=== PATIENT | female | born 1935 | race Caucasian/White ===

== ENCOUNTER 2017-05-28 20:46 | Inpatient (IN) | payer MEDICARE, OTHER ==
[~2017-05-28 20:46] MED LIST: KETAMINE HCL* 50 MG/ML 10 ML VIAL ONE; Succinylcholine* 20 MG/ML 10 ML VIAL ONE
[2017-05-28] MEDS ORDERED: Propofol* 100 ML ONE (20:58)
[2017-05-28] MEDS ORDERED: Levofloxacin 750 MG IVPREMIX(* 750 MG/150 ML BAG IVPB ONE (21:04)
[2017-05-28] MEDS ORDERED: NS 0.9% 1000 ML* 1,000 ML IV ONE (21:04)
[2017-05-28] MEDS ORDERED: Succinylcholine* 20 MG/ML 10 ML VIAL IV ONE (21:08)
[2017-05-28] MEDS ORDERED: Albuterol/Ipratropium NEB.SOL* Albuterol 2.5 MG/Ipratropium 0.5 MG 3 ML INH ONE (21:08)
[2017-05-28] MEDS ORDERED: KETAMINE HCL* 50 MG/ML 10 ML VIAL IV ONE (21:08)
[2017-05-28] MEDS ORDERED: Rocuronium* 10 MG/ML VIAL IV ONE (21:48)
[2017-05-28] MEDS ORDERED: EPINEPHrine,Rac 2.25% NEB.SOL* 0.5 ML INH ONE (21:51)
[2017-05-28] MEDS ORDERED: Propofol* 500 MG/50 ML BTL IV SCH (22:00)
[2017-05-28 22:04] LABS: ABS Basophils 0.2 10^3/ul (0-0.2); ABS Eosinophils 0.8 10^3/ul (0-0.6); ABS Lymphocytes 3.3 10^3/ul (1.0-4.8); ABS Monocytes 0.5 10^3/ul (0-0.8); ABS Neutrophils 11.6 10^3/ul (1.5-7.7); ABS Nucleated RBC 0 10^3/ul; Eosinophil % 4.7 % (0-6); Hematocrit 41 % (35-47); Hemoglobin 13.4 g/dl (12.0-16.0); Mean Corpuscular HGB Conc 33 g/dl (31-36); Mean Corpuscular Hemoglobin 30 pg (27-31); Mean Corpuscular Volume 90 fL (80-97); Mean Platelet Volume 8.4 um3 (7.4-10.4); Nucleated Red Blood Cells % 0; Platelet Count 325 10^3/ul (150-450); Red Blood Count 4.53 10^6/ul (4.0-5.4); Red Cell Distribution Width 16 % (10.5-15); White Blood Count 16.3 10^3/ul (3.5-10.8)
[2017-05-28 22:08] LABS: EGFR Non-African American 53.3 (>60)
--- NOTE | 2017-05-28 22:10 | RAD ---
Indication: Respiratory failure.. Single frontal view of the chest performed at 2110 hours was reviewed. Comparison is made with previous exam dated May 24, 2017. No mediastinal shift is noted. There is cardiomegaly noted. Interstitial edema consistent with vascular congestion is noted. ET tube is at the level of the aortic arch. IMPRESSION: CARDIOMEGALY WITH INTERSTITIAL EDEMA CONSISTENT WITH CHF. ET TUBE AND NASOGASTRIC TUBE APPEARS TO BE IN PLACE.
[2017-05-28 22:14] LABS: INR 0.89 (0.77-1.02)
[2017-05-28 23:11] LABS: Urine Appearance Cloudy; Urine Blood 1+ (Negative); Urine Color Amber; Urine Ketones Trace (Negative); Urine Protein 2+(100 mg/dL) (Negative); Urine Specific Gravity 1.017 (1.010-1.030); Urine Urobilinogen Negative (Negative)
--- NOTE | 2017-05-28 23:20 | HP ---
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 He relates she has had a cough & congestion since February similar to another family member. Ashwin was reportedly talking on the phone and became more acutely SOB prompting the call for EMS. There was no complaint of chest pain, LE swelling/ pain, F/C, sweats, or N/V/D. Her son states that his sister is en route from [place] and may have more information on her treatment wishes. 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 Cholecalciferol [Vitamin D-3] 1,000 unit PO BID 02/08/12 Cinnamon 500 mg PO QAM 02/08/12 Albuterol Sulfate [Proventil Hfa] 2 puff INH BID PRN 09/25/13 Acetaminophen TAB* [Tylenol TAB*] 650 mg PO Q4H PRN 05/19/14 Acetaminophen/Diphenhydramine [Acetaminophen/Diphenhydra 25-500 mg] 2 tab PO BEDTIME 05/19/14 Carboxymethylcellulose Sodium [Refresh Tears] 0.5 % PO BID 05/19/14 Cyanocobalamin TAB* [Vitamin B12 TAB*] 500 mcg PO EVERY OTHER DAY 05/19/14 Artificial Tear Ointment [Refresh P.m] 1 oin BOTH EYES BEDTIME 12/03/14 Enalapril TAB* [Vasotec TAB*] 20 mg PO BID 12/03/14 Felodipine (NF) [Plendil (NF)] 5 mg PO QAM 12/03/14 Garlic 1 cap PO DAILY 12/03/14 Hydrochlorothiazide TAB* [Hydrodiuril TAB*] 25 mg PO QAM 12/03/14 Lysine HCl [l-Lysine] 500 mg PO DAILY 12/03/14 Pravastatin (NF) [Pravachol (NF)] 20 mg PO DAILY 12/03/14 [place]-3 Fatty Acids/Fish Oil [Fish Oil 1200 mg] 1 cap PO DAILY 11/20/15 Allergies aspirin Allergy (Verified 05/28/17 21:27) See Comment ITCHY AND RASH Perfume [Fragrance] Allergy (Verified 11/27/15 08:19) DIFF. BREATHING/COUGH PSurgHx as above and otherwise positive for: B tubal ligation hiatal hernia repair appendectomy SocHx: quit smoking >30years ago, no alcohol or recreational drugs; lives with son; full code status FamHx: reviewed & non-contributory ROS: as above, otherwise reviewed and all were negative vitals: Vital Signs Temp 36.7 C 05/29/17 05:01 Pulse 92 05/29/17 05:01 Resp 15 05/29/17 05:08 BP 104/69 05/29/17 05:00 Pulse Ox 100 05/29/17 05:01 Intake & Output 05/28/17 05/28/17 05/29/17 11:59 23:59 11:59 Intake Total 999 1852 Output Total 650 Balance 999 1202 Weight 85 kg 85.6 kg Intake: IV Fluids 999 1778 NS (0.9%) 1778 Medicated IV 74 CC - Propofol/Diprivan 74 Output: NG Tube Drainage Amount 100 [place] 550 Constitutional: NAD, normally developed, obese white female HEENM: atraumatic; sclera/conjunctiva: anicteric/clear; hearing: clinically intact; oropharynx: clear, mucosa moist Neck: soft tissue: non-tender; thyroid: normal Pulmonary: intubated, diffuse crackles B, fair aeration, no accessory muscle use CV: RR/RR, normal S1S2, no carotid bruit, no jugular venous distention, 2+ B DP/ PT, trace BLE edema Abdominal: soft, non-distended, non-tender, no rebound/guarding/rigidity, normoactive bowel sounds, no hepatosplenomegaly or masses, no costovertebral angle tenderness Musculoskeletal: general: grossly intact; gait: currently non-ambulatory Integumental: normal appearance and texture of exposed skin Psychiatric orientation: intubated & sedated affect: sedated mood: acquiescent eye contact: absent content: absent responses: withdraws purposefully to pain insight: unable to assess Testing: Lab Results 05/28/17 05/28/17 05/28/17 Range/Units 21:25 21:40 21:40 WBC 16.3 H (3.5-10.8) 10^3/ul RBC 4.53 (4.0-5.4) 10^6/ul Hgb 13.4 (12.0-16.0) g/dl Hct 41 (35-47) % MCV 90 (80-97) fL MCH 30 (27-31) pg MCHC 33 (31-36) g/dl RDW 16 H (10.5-15) % Plt Count 325 (150-450) 10^3/ul MPV 8.4 (7.4-10.4) um3 Neut % (Auto) 71.1 (38-83) % Lymph % (Auto) 20.0 L (25-47) % [place] % (Auto) 3.2 (0-7) % Eos % (Auto) 4.7 (0-6) % Baso % (Auto) 1.0 (0-2) % Absolute Neuts (auto) 11.6 H (1.5-7.7) 10^3/ul Absolute Lymphs (auto) 3.3 (1.0-4.8) 10^3/ul Absolute Monos (auto) 0.5 (0-0.8) 10^3/ul Absolute Eos (auto) 0.8 H (0-0.6) 10^3/ul Absolute Basos (auto) 0.2 (0-0.2) 10^3/ul Absolute Nucleated RBC 0 10^3/ul Nucleated RBC % 0 INR (Anticoag Therapy) (0.77-1.02) APTT (26.0-36.3) seconds D-Dimer, Quantitative (Less Than 230) ng/mL Patient Temperature Not Reportable ABG pH 7.15 L* (7.35-7.45) ABG pH (Temp Correct) Not Reportable ABG pCO2 75 H* (35-45) mmHg ABG pCO2 (Temp Corrct Not Reportable ABG pO2 208 H (80-100) mmHg ABG pO2 (Temp Correct Not Reportable ABG HCO3 21.4 (19-31) mmol/L ABG O2 Saturation 98.7 H (95-98) % ABG Base Excess -4.5 L (-2.0-2.0) Respiration Rate Not Reportable O2 Delivery Device vent Ventilator Type Not Reportable Vent Mode Not Reportable FiO2 Not Reportable Inspiratory Time Not Reportable PEEP 10 Pressure Support Not Reportable Pressure Control Not Reportable EPAP Not Reportable IPAP Not Reportable BiPAP Not Reportable Sodium 123 L (139-145) mmol/L Potassium 3.8 (3.5-5.0) mmol/L Chloride 91 L (101-111) mmol/L Carbon Dioxide 22 (22-32) mmol/L Anion Gap 10 (2-11) mmol/L BUN 18 (6-24) mg/dL Creatinine 1.00 H (0.51-0.95) mg/dL Est GFR ( Amer) 68.6 (>60) Est GFR (Non-Af Amer) 53.3 (>60) BUN/Creatinine Ratio 18.0 (8-20) Glucose 332 H (70-100) mg/dL Lactic Acid (0.5-2.0) mmol/L Calcium 9.1 (8.6-10.3) mg/dL Total Bilirubin 0.30 (0.2-1.0) mg/dL AST 52 H (13-39) U/L ALT 53 H (7-52) U/L Alkaline Phosphatase 94 (34-104) U/L Troponin I 0.07 H* (<0.04) ng/mL C-Reactive Protein 6.40 H (< 5.00) mg/L B-Natriuretic Peptide ( - 100) pg/mL Total Protein 6.8 (6.4-8.9) g/dL Albumin 3.8 (3.2-5.2) g/dL Globulin 3.0 (2-4) g/dL Albumin/Globulin Ratio 1.3 (1-3) Urine Color Urine Appearance Urine pH (5-9) Ur Specific [place] (1.010-1.030) Urine Protein (Negative) Urine Ketones (Negative) Urine Blood (Negative) Urine Nitrate (Negative) Urine Bilirubin (Negative) Urine Urobilinogen (Negative) Ur Leukocyte Esterase (Negative) Urine WBC (Auto) (Absent) Urine RBC (Auto) (Absent) Ur Squamous Epith Cells (Absent) Urine Bacteria (Absent) Hyaline Casts (Absent) Urine Glucose (Negative) Influenza A (Rapid) (Negative) Influenza B (Rapid) (Negative) 05/28/17 05/28/17 05/28/17 Range/Units 21:40 21:40 21:40 WBC (3.5-10.8) 10^3/ul RBC (4.0-5.4) 10^6/ul Hgb (12.0-16.0) g/dl Hct (35-47) % MCV (80-97) fL MCH (27-31) pg MCHC (31-36) g/dl RDW (10.5-15) % Plt Count (150-450) 10^3/ul MPV (7.4-10.4) um3 Neut % (Auto) (38-83) % Lymph % (Auto) (25-47) % [place] % (Auto) (0-7) % Eos % (Auto) (0-6) % Baso % (Auto) (0-2) % Absolute Neuts (auto) (1.5-7.7) 10^3/ul Absolute Lymphs (auto) (1.0-4.8) 10^3/ul Absolute Monos (auto) (0-0.8) 10^3/ul Absolute Eos (auto) (0-0.6) 10^3/ul Absolute Basos (auto) (0-0.2) 10^3/ul Absolute Nucleated RBC 10^3/ul Nucleated RBC % INR (Anticoag Therapy) 0.89 (0.77-1.02) APTT 34.7 (26.0-36.3) seconds D-Dimer, Quantitative 424 H (Less Than 230) ng/mL Patient Temperature ABG pH (7.35-7.45) ABG pH (Temp Correct) ABG pCO2 (35-45) mmHg ABG pCO2 (Temp Corrct ABG pO2 (80-100) mmHg ABG pO2 (Temp Correct ABG HCO3 (19-31) mmol/L ABG O2 Saturation (95-98) % ABG Base Excess (-2.0-2.0) Respiration Rate O2 Delivery Device Ventilator Type Vent Mode FiO2 Inspiratory Time PEEP Pressure Support Pressure Control EPAP IPAP BiPAP Sodium (139-145) mmol/L Potassium (3.5-5.0) mmol/L Chloride (101-111) mmol/L Carbon Dioxide (22-32) mmol/L Anion Gap (2-11) mmol/L BUN (6-24) mg/dL Creatinine (0.51-0.95) mg/dL Est GFR ( Amer) (>60) Est GFR (Non-Af Amer) (>60) BUN/Creatinine Ratio (8-20) Glucose (70-100) mg/dL Lactic Acid 1.6 (0.5-2.0) mmol/L Calcium (8.6-10.3) mg/dL Total Bilirubin (0.2-1.0) mg/dL AST (13-39) U/L ALT (7-52) U/L Alkaline Phosphatase (34-104) U/L Troponin I (<0.04) ng/mL C-Reactive Protein (< 5.00) mg/L B-Natriuretic Peptide 45 ( - 100) pg/mL Total Protein (6.4-8.9) g/dL Albumin (3.2-5.2) g/dL Globulin (2-4) g/dL Albumin/Globulin Ratio (1-3) Urine Color Urine Appearance Urine pH (5-9) Ur Specific [place] (1.010-1.030) Urine Protein (Negative) Urine Ketones (Negative) Urine Blood (Negative) Urine Nitrate (Negative) Urine Bilirubin (Negative) Urine Urobilinogen (Negative) Ur Leukocyte Esterase (Negative) Urine WBC (Auto) (Absent) Urine RBC (Auto) (Absent) Ur Squamous Epith Cells (Absent) Urine Bacteria (Absent) Hyaline Casts (Absent) Urine Glucose (Negative) Influenza A (Rapid) (Negative) Influenza B (Rapid) (Negative) 05/28/17 05/28/17 05/28/17 Range/Units 22:20 23:34 23:50 WBC (3.5-10.8) 10^3/ul RBC (4.0-5.4) 10^6/ul Hgb (12.0-16.0) g/dl Hct (35-47) % MCV (80-97) fL MCH (27-31) pg MCHC (31-36) g/dl RDW (10.5-15) % Plt Count (150-450) 10^3/ul MPV (7.4-10.4) um3 Neut % (Auto) (38-83) % Lymph % (Auto) (25-47) % [place] % (Auto) (0-7) % Eos % (Auto) (0-6) % Baso % (Auto) (0-2) % Absolute Neuts (auto) (1.5-7.7) 10^3/ul Absolute Lymphs (auto) (1.0-4.8) 10^3/ul Absolute Monos (auto) (0-0.8) 10^3/ul Absolute Eos (auto) (0-0.6) 10^3/ul Absolute Basos (auto) (0-0.2) 10^3/ul Absolute Nucleated RBC 10^3/ul Nucleated RBC % INR (Anticoag Therapy) (0.77-1.02) APTT (26.0-36.3) seconds D-Dimer, Quantitative (Less Than 230) ng/mL Patient Temperature Not Reportable ABG pH 7.20 L (7.35-7.45) ABG pH (Temp Correct) Not Reportable ABG pCO2 63 H (35-45) mmHg ABG pCO2 (Temp Corrct Not Reportable ABG pO2 346 H (80-100) mmHg ABG pO2 (Temp Correct Not Reportable ABG HCO3 21.3 (19-31) mmol/L ABG O2 Saturation 98.9 H (95-98) % ABG Base Excess -4.6 L (-2.0-2.0) Respiration Rate Not Reportable O2 Delivery Device vent Ventilator Type Not Reportable Vent Mode Pcv FiO2 100 Inspiratory Time Not Reportable PEEP 10 Pressure Support Not Reportable Pressure Control Not Reportable EPAP Not Reportable IPAP Not Reportable BiPAP Not Reportable Sodium (139-145) mmol/L Potassium (3.5-5.0) mmol/L Chloride (101-111) mmol/L Carbon Dioxide (22-32) mmol/L Anion Gap (2-11) mmol/L BUN 17 (6-24) mg/dL Creatinine 0.93 (0.51-0.95) mg/dL Est GFR ( Amer) 74.6 (>60) Est GFR (Non-Af Amer) 58.0 (>60) BUN/Creatinine Ratio (8-20) Glucose (70-100) mg/dL Lactic Acid (0.5-2.0) mmol/L Calcium (8.6-10.3) mg/dL Total Bilirubin (0.2-1.0) mg/dL AST (13-39) U/L ALT (7-52) U/L Alkaline Phosphatase (34-104) U/L Troponin I 0.26 H* (<0.04) ng/mL C-Reactive Protein (< 5.00) mg/L B-Natriuretic Peptide ( - 100) pg/mL Total Protein (6.4-8.9) g/dL Albumin (3.2-5.2) g/dL Globulin (2-4) g/dL Albumin/Globulin Ratio (1-3) Urine Color [place] Urine Appearance Cloudy Urine pH 5.0 (5-9) Ur Specific [place] 1.017 (1.010-1.030) Urine Protein 2+(100 mg/dl) A (Negative) Urine Ketones Trace A (Negative) Urine Blood 1+ A (Negative) Urine Nitrate Negative (Negative) Urine Bilirubin Negative (Negative) Urine Urobilinogen Negative (Negative) Ur Leukocyte Esterase Negative (Negative) Urine WBC (Auto) 2+(11-20/hpf) A (Absent) Urine RBC (Auto) 2+(6-10/hpf) A (Absent) Ur Squamous Epith Cells Present A (Absent) Urine Bacteria Absent (Absent) Hyaline Casts Present A (Absent) Urine Glucose 2+(150 mg/dl) A (Negative) Influenza A (Rapid) (Negative) Influenza B (Rapid) (Negative) 05/28/17 05/29/17 05/29/17 Range/Units 23:53 03:15 05:50 WBC 8.6 (3.5-10.8) 10^3/ul RBC 3.75 L (4.0-5.4) 10^6/ul Hgb 11.3 L (12.0-16.0) g/dl Hct 33 L (35-47) % MCV 88 (80-97) fL MCH 30 (27-31) pg MCHC 34 (31-36) g/dl RDW 15 (10.5-15) % Plt Count 197 (150-450) 10^3/ul MPV 8.0 (7.4-10.4) um3 Neut % (Auto) 89.7 H (38-83) % Lymph % (Auto) 6.8 L (25-47) % [place] % (Auto) 3.1 (0-7) % Eos % (Auto) 0.1 (0-6) % Baso % (Auto) 0.3 (0-2) % Absolute Neuts (auto) 7.7 (1.5-7.7) 10^3/ul Absolute Lymphs (auto) 0.6 L (1.0-4.8) 10^3/ul Absolute Monos (auto) 0.3 (0-0.8) 10^3/ul Absolute Eos (auto) 0 (0-0.6) 10^3/ul Absolute Basos (auto) 0 (0-0.2) 10^3/ul Absolute Nucleated RBC 0 10^3/ul Nucleated RBC % 0 INR (Anticoag Therapy) (0.77-1.02) APTT (26.0-36.3) seconds D-Dimer, Quantitative (Less Than 230) ng/mL Patient Temperature ABG pH (7.35-7.45) ABG pH (Temp Correct) ABG pCO2 (35-45) mmHg ABG pCO2 (Temp Corrct ABG pO2 (80-100) mmHg ABG pO2 (Temp Correct ABG HCO3 (19-31) mmol/L ABG O2 Saturation (95-98) % ABG Base Excess (-2.0-2.0) Respiration Rate O2 Delivery Device Ventilator Type Vent Mode FiO2 Inspiratory Time PEEP Pressure Support Pressure Control EPAP IPAP BiPAP Sodium (139-145) mmol/L Potassium (3.5-5.0) mmol/L Chloride (101-111) mmol/L Carbon Dioxide (22-32) mmol/L Anion Gap (2-11) mmol/L BUN (6-24) mg/dL Creatinine (0.51-0.95) mg/dL Est GFR ( Amer) (>60) Est GFR (Non-Af Amer) (>60) BUN/Creatinine Ratio (8-20) Glucose (70-100) mg/dL Lactic Acid (0.5-2.0) mmol/L Calcium (8.6-10.3) mg/dL Total Bilirubin (0.2-1.0) mg/dL AST (13-39) U/L ALT (7-52) U/L Alkaline Phosphatase (34-104) U/L Troponin I 0.47 H* (<0.04) ng/mL C-Reactive Protein (< 5.00) mg/L B-Natriuretic Peptide ( - 100) pg/mL Total Protein (6.4-8.9) g/dL Albumin (3.2-5.2) g/dL Globulin (2-4) g/dL Albumin/Globulin Ratio (1-3) Urine Color Urine Appearance Urine pH (5-9) Ur Specific [place] (1.010-1.030) Urine Protein (Negative) Urine Ketones (Negative) Urine Blood (Negative) Urine Nitrate (Negative) Urine Bilirubin (Negative) Urine Urobilinogen (Negative) Ur Leukocyte Esterase (Negative) Urine WBC (Auto) (Absent) Urine RBC (Auto) (Absent) Ur Squamous Epith Cells (Absent) Urine Bacteria (Absent) Hyaline Casts (Absent) Urine Glucose (Negative) Influenza A (Rapid) Negative (Negative) Influenza B (Rapid) Negative (Negative) ECG, personally reviewed: sinus tachycardia rate 113, T-wave inversions V6/I, poor R-wave progression, Q-waves in III/AVF CXR, personally reviewed: IMPRESSION: CARDIOMEGALY WITH INTERSTITIAL EDEMA CONSISTENT WITH CHF. ET TUBE AND NASOGASTRIC TUBE APPEARS TO BE IN PLACE. 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 s/p resections, & cecal volvulus s/p resection presents with acute hypoxic/ hypercarbic respiratory failure 2nd bibasilar pneumonia (BNP is 47) DIAGNOSIS & PLAN Primary severe sepsis 2nd bibasilar pneumonia : ICU w/ mechanical ventilation : IV levofloxacin : cautious IVFs given age & currently good blood pressure : blood & sputum CXs : check urine Legionella & S pneumo antigens : rapid influenza negative : supportive care acute hypoxic & hypercapneic respiratory failure : mechanical ventilation elevated d-dimer : obtain CTA chest once fully stabilized in ICU elevated troponin : suspect demand ischemia : trend : telemetry Secondary HTN : review meds once reconciled COPD hypothyroidism : review meds once reconciled HX benign pituitary tumor s/p transphenoidal resection : no acute issues HX 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
[2017-05-28] MEDS ORDERED: Acetaminophen SUPP* 650 MG SUPP PR PRN (23:29)
[2017-05-28] MEDS ORDERED: Ondansetron INJ* 2 MG/ML VIAL IV PRN (23:42)
[2017-05-28] MEDS ORDERED: NS 0.9% 1000 ML* 1,500 ML IV ONE (23:45)
[2017-05-29] MEDS ORDERED: Morphine VIAL* 4 MG/ML VIAL (1 ml vial) IV ONE ×8 (00:53→10:20)
[2017-05-29] MEDS: NS 0.9% 1000 ML* 1,000 ML IV SCH ×2 (01:58→08:27)
[2017-05-29] MEDS: Propofol* 100 ML IV SCH (02:11)
[2017-05-29] MEDS: Chlorhexidine MOUTHWASH 0.12%* 15 ML UDC TOPICAL SCH ×6 (03:57→21:15)
[2017-05-29] MEDS: Morphine VIAL* 4 MG/ML VIAL (1 ml vial) IV PRN ×2 (03:58→10:00)
--- NOTE | 2017-05-29 04:52 | ED ---
Frantz Roque Nikita, scribed for Carmelo Berg MD on 05/28/17 at 2104 . Respiratory - HPI Summary HPI Summary: LEVEL 5 CAVEAT This patient is an 82 year old F BIBA to ED with severe respiratory distress, is unable to speak, and is unable to breathe on her own. Per EMS, the patient was given decadron 10 mg IV, magenesium IV, and two breathing treatments. The patient was previously on CPAP but it was taken out because the patient was getting tired. The patient was also seen 3 times previously but with no dx of PNA and was given no abx or steroids. - History of Current Complaint Stated Complaint: SOB Hx Obtained From: EMS Hx From Patient Unobtainable Due To: Other - severe respiratory distress Onset/Duration: Sudden Onset, Lasting Hours, Still Present Timing: Constant - Allergy/Home Medications Allergies/Adverse Reactions: Allergies Allergy/AdvReac Type Severity Reaction Status Date / Time aspirin Allergy See Comment Verified 05/28/17 21:27 Perfume [Fragrance] Allergy DIFF. 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 Denies: Hx Pacemaker/ICD Respiratory History: Reports: Hx Asthma, Hx Chronic Obstructive Pulmonary Disease (COPD), Other Respiratory Problems/Disorders - COPD GI History: Reports: Hx Hiatal Hernia - PAST SURGERY, OK NOW, Other GI Disorders - "BLOCKED BOWEL 04/2014- NO PROBLEMS NOW History: Reports: Hx Kidney Stones - SMALL STONE STILL IN NOT CAUSING ANY PROBLEMS, Other Problems/Disorders - Hx OF BLADDER tumors,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 HERNIA REPAIR [place]. 1964 TUBAL LIGATION [facility]. 1965 APPENDECTOMY [place]. 2004 HERNIA REPAIR [facility] [place]. 2009 BILATERAL LEG VEIN STRIPPINGS [facility]. 06/2011 BOWEL SURGERY ( CECAL VOLVULUS W/GANGRENE- LYSIS OF ADHESIONS W/ Rt COLLECTOMY-NO COLOSTOMY BAG) [facility]. 02/18 CATARACT. TUMOR REMOVED FROM [facility] -2013 - [facility] Hx Anesthesia Reactions: - 2009 BP ELEVATED, HIGH Infectious Disease History: Reports: Hx Shingles Denies: Traveled Outside the [place] in Last 30 Days - Family History Known Family History: Negative: Cardiac Disease, Hypertension, Diabetes - Social History Alcohol Use: None Substance Use Type: Reports: None Smoking Status (MU): Former Smoker Amount Used/How Often: 2-3 PPD X 30 YEARS Have You Smoked in the Last Year: No Review of Systems Positive: Other - respiratory distress, unable to breathe on her own, was previously on CPAP but was taken out because the patient was getting tired per EMS All Other Systems Reviewed And Are Negative: No - Comments Additional Review of Systems Comments: LEVEL 5 CAVEAT due to severe respiratory distress and inability to speak or breathe on her own at arrival Physical Exam - Summary Physical Exam Summary: LEVEL 5 CAVEAT She has poor aeration in both lung rose with expiratory wheezing evident. She has a distended abdomen, a large midline surgical scar, skin is mottled and cool , some spontaneous movement of her UE and eye movement. Triage Information Reviewed: Yes Vital Signs On Initial Exam: Initial Vitals Resp 23 05/28/17 20:51 Vital Signs Reviewed: Yes Completion Of Physical Exam Limited Due To: Level 5 Procedures - Intubation Time of Intubation: 21:03 Intubation Method: orotracheal - 20cm at lip; Placed with glidescope Tube Size (cm): 7.5 - Intubated glidescope #3, 20 cm at the lip and OG tube was placed at the same time Medications: Succinylcholine - succinylcholine 150 mg and ketamine 150 mg Breath Sounds after Intubation: equal Intubation Complications: no complications Post Intubation Xray: Yes - tubes appropriate Progress/Xray Impression: OG tube also placed. Diagnostics - Vital Signs Vital Signs Temp Pulse Resp BP Pulse Ox 05/28/17 23:10 97.2 F 130 14 139/90 96 05/28/17 23:08 97.2 F 129 14 137/89 96 05/28/17 23:00 97.2 F 132 14 96 05/28/17 22:54 97.2 F 131 16 137/89 95 05/28/17 22:49 97.3 F 131 14 130/86 96 05/28/17 22:44 97.5 F 131 14 123/81 96 05/28/17 22:39 97.5 F 130 14 124/78 96 05/28/17 22:34 97.9 F 114 14 114/70 95 05/28/17 22:24 98.4 F 115 14 110/68 95 05/28/17 22:19 98.6 F 115 14 105/71 94 05/28/17 22:14 98.8 F 114 14 103/66 94 05/28/17 22:09 99.0 F 113 14 92/66 93 05/28/17 22:06 99.0 F 112 16 88/58 93 05/28/17 22:05 101 16 90 05/28/17 22:04 99.1 F 110 27 58/46 91 05/28/17 22:03 99.1 F 109 20 53/38 91 05/28/17 22:01 99.1 F 106 14 90 05/28/17 22:00 99.1 F 105 14 47/34 90 05/28/17 21:54 99.1 F 94 16 77/46 90 05/28/17 21:50 99.3 F 101 17 66/37 90 05/28/17 21:47 101 16 90 05/28/17 21:44 99.3 F 103 18 66/42 89 05/28/17 21:41 99.3 F 106 16 75/46 88 05/28/17 21:30 99.1 F 110 20 109/70 88 05/28/17 21:11 122 19 136/86 89 05/28/17 21:03 118 17 117/68 95 05/28/17 21:00 99 21 94 05/28/17 20:53 94 23 160/125 83 05/28/17 20:52 99.0 F 102 23 160/125 84 05/28/17 20:51 23 - Laboratory Lab Results: Lab Results 05/28/17 05/28/17 05/28/17 Range/Units 21:25 21:40 21:40 WBC 16.3 H (3.5-10.8) 10^3/ul RBC 4.53 (4.0-5.4) 10^6/ul Hgb 13.4 (12.0-16.0) g/dl Hct 41 (35-47) % MCV 90 (80-97) fL MCH 30 (27-31) pg MCHC 33 (31-36) g/dl RDW 16 H (10.5-15) % Plt Count 325 (150-450) 10^3/ul MPV 8.4 (7.4-10.4) um3 Neut % (Auto) 71.1 (38-83) % Lymph % (Auto) 20.0 L (25-47) % [place] % (Auto) 3.2 (0-7) % Eos % (Auto) 4.7 (0-6) % Baso % (Auto) 1.0 (0-2) % Absolute Neuts (auto) 11.6 H (1.5-7.7) 10^3/ul Absolute Lymphs (auto) 3.3 (1.0-4.8) 10^3/ul Absolute Monos (auto) 0.5 (0-0.8) 10^3/ul Absolute Eos (auto) 0.8 H (0-0.6) 10^3/ul Absolute Basos (auto) 0.2 (0-0.2) 10^3/ul Absolute Nucleated RBC 0 10^3/ul Nucleated RBC % 0 INR (Anticoag Therapy) (0.77-1.02) APTT (26.0-36.3) seconds D-Dimer, Quantitative (Less Than 230) ng/mL Patient Temperature Not Reportable ABG pH 7.15 L* (7.35-7.45) ABG pH (Temp Correct) Not Reportable ABG pCO2 75 H* (35-45) mmHg ABG pCO2 (Temp Corrct Not Reportable ABG pO2 208 H (80-100) mmHg ABG pO2 (Temp Correct Not Reportable ABG HCO3 21.4 (19-31) mmol/L ABG O2 Saturation 98.7 H (95-98) % ABG Base Excess -4.5 L (-2.0-2.0) Respiration Rate Not Reportable O2 Delivery Device vent Ventilator Type Not Reportable Vent Mode Not Reportable FiO2 Not Reportable Inspiratory Time Not Reportable PEEP 10 Pressure Support Not Reportable Pressure Control Not Reportable EPAP Not Reportable IPAP Not Reportable BiPAP Not Reportable Sodium 123 L (139-145) mmol/L Potassium 3.8 (3.5-5.0) mmol/L Chloride 91 L (101-111) mmol/L Carbon Dioxide 22 (22-32) mmol/L Anion Gap 10 (2-11) mmol/L BUN 18 (6-24) mg/dL Creatinine 1.00 H (0.51-0.95) mg/dL Est GFR ( Amer) 68.6 (>60) Est GFR (Non-Af Amer) 53.3 (>60) BUN/Creatinine Ratio 18.0 (8-20) Glucose 332 H (70-100) mg/dL Lactic Acid (0.5-2.0) mmol/L Calcium 9.1 (8.6-10.3) mg/dL Total Bilirubin 0.30 (0.2-1.0) mg/dL AST 52 H (13-39) U/L ALT 53 H (7-52) U/L Alkaline Phosphatase 94 (34-104) U/L Troponin I 0.07 H* (<0.04) ng/mL C-Reactive Protein 6.40 H (< 5.00) mg/L B-Natriuretic Peptide ( - 100) pg/mL Total Protein 6.8 (6.4-8.9) g/dL Albumin 3.8 (3.2-5.2) g/dL Globulin 3.0 (2-4) g/dL Albumin/Globulin Ratio 1.3 (1-3) Urine Color Urine Appearance Urine pH (5-9) Ur Specific [place] (1.010-1.030) Urine Protein (Negative) Urine Ketones (Negative) Urine Blood (Negative) Urine Nitrate (Negative) Urine Bilirubin (Negative) Urine Urobilinogen (Negative) Ur Leukocyte Esterase (Negative) Urine WBC (Auto) (Absent) Urine RBC (Auto) (Absent) Ur Squamous Epith Cells (Absent) Urine Bacteria (Absent) Hyaline Casts (Absent) Urine Glucose (Negative) 05/28/17 05/28/17 05/28/17 Range/Units 21:40 21:40 21:40 WBC (3.5-10.8) 10^3/ul RBC (4.0-5.4) 10^6/ul Hgb (12.0-16.0) g/dl Hct (35-47) % MCV (80-97) fL MCH (27-31) pg MCHC (31-36) g/dl RDW (10.5-15) % Plt Count (150-450) 10^3/ul MPV (7.4-10.4) um3 Neut % (Auto) (38-83) % Lymph % (Auto) (25-47) % [place] % (Auto) (0-7) % Eos % (Auto) (0-6) % Baso % (Auto) (0-2) % Absolute Neuts (auto) (1.5-7.7) 10^3/ul Absolute Lymphs (auto) (1.0-4.8) 10^3/ul Absolute Monos (auto) (0-0.8) 10^3/ul Absolute Eos (auto) (0-0.6) 10^3/ul Absolute Basos (auto) (0-0.2) 10^3/ul Absolute Nucleated RBC 10^3/ul Nucleated RBC % INR (Anticoag Therapy) 0.89 (0.77-1.02) APTT 34.7 (26.0-36.3) seconds D-Dimer, Quantitative 424 H (Less Than 230) ng/mL Patient Temperature ABG pH (7.35-7.45) ABG pH (Temp Correct) ABG pCO2 (35-45) mmHg ABG pCO2 (Temp Corrct ABG pO2 (80-100) mmHg ABG pO2 (Temp Correct ABG HCO3 (19-31) mmol/L ABG O2 Saturation (95-98) % ABG Base Excess (-2.0-2.0) Respiration Rate O2 Delivery Device Ventilator Type Vent Mode FiO2 Inspiratory Time PEEP Pressure Support Pressure Control EPAP IPAP BiPAP Sodium (139-145) mmol/L Potassium (3.5-5.0) mmol/L Chloride (101-111) mmol/L Carbon Dioxide (22-32) mmol/L Anion Gap (2-11) mmol/L BUN (6-24) mg/dL Creatinine (0.51-0.95) mg/dL Est GFR ( Amer) (>60) Est GFR (Non-Af Amer) (>60) BUN/Creatinine Ratio (8-20) Glucose (70-100) mg/dL Lactic Acid 1.6 (0.5-2.0) mmol/L Calcium (8.6-10.3) mg/dL Total Bilirubin (0.2-1.0) mg/dL AST (13-39) U/L ALT (7-52) U/L Alkaline Phosphatase (34-104) U/L Troponin I (<0.04) ng/mL C-Reactive Protein (< 5.00) mg/L B-Natriuretic Peptide 45 ( - 100) pg/mL Total Protein (6.4-8.9) g/dL Albumin (3.2-5.2) g/dL Globulin (2-4) g/dL Albumin/Globulin Ratio (1-3) Urine Color Urine Appearance Urine pH (5-9) Ur Specific [place] (1.010-1.030) Urine Protein (Negative) Urine Ketones (Negative) Urine Blood (Negative) Urine Nitrate (Negative) Urine Bilirubin (Negative) Urine Urobilinogen (Negative) Ur Leukocyte Esterase (Negative) Urine WBC (Auto) (Absent) Urine RBC (Auto) (Absent) Ur Squamous Epith Cells (Absent) Urine Bacteria (Absent) Hyaline Casts (Absent) Urine Glucose (Negative) 05/28/17 Range/Units 22:20 WBC (3.5-10.8) 10^3/ul RBC (4.0-5.4) 10^6/ul Hgb (12.0-16.0) g/dl Hct (35-47) % MCV (80-97) fL MCH (27-31) pg MCHC (31-36) g/dl RDW (10.5-15) % Plt Count (150-450) 10^3/ul MPV (7.4-10.4) um3 Neut % (Auto) (38-83) % Lymph % (Auto) (25-47) % [place] % (Auto) (0-7) % Eos % (Auto) (0-6) % Baso % (Auto) (0-2) % Absolute Neuts (auto) (1.5-7.7) 10^3/ul Absolute Lymphs (auto) (1.0-4.8) 10^3/ul Absolute Monos (auto) (0-0.8) 10^3/ul Absolute Eos (auto) (0-0.6) 10^3/ul Absolute Basos (auto) (0-0.2) 10^3/ul Absolute Nucleated RBC 10^3/ul Nucleated RBC % INR (Anticoag Therapy) (0.77-1.02) APTT (26.0-36.3) seconds D-Dimer, Quantitative (Less Than 230) ng/mL Patient Temperature ABG pH (7.35-7.45) ABG pH (Temp Correct) ABG pCO2 (35-45) mmHg ABG pCO2 (Temp Corrct ABG pO2 (80-100) mmHg ABG pO2 (Temp Correct ABG HCO3 (19-31) mmol/L ABG O2 Saturation (95-98) % ABG Base Excess (-2.0-2.0) Respiration Rate O2 Delivery Device Ventilator Type Vent Mode FiO2 Inspiratory Time PEEP Pressure Support Pressure Control EPAP IPAP BiPAP Sodium (139-145) mmol/L Potassium (3.5-5.0) mmol/L Chloride (101-111) mmol/L Carbon Dioxide (22-32) mmol/L Anion Gap (2-11) mmol/L BUN (6-24) mg/dL Creatinine (0.51-0.95) mg/dL Est GFR ( Amer) (>60) Est GFR (Non-Af Amer) (>60) BUN/Creatinine Ratio (8-20) Glucose (70-100) mg/dL Lactic Acid (0.5-2.0) mmol/L Calcium (8.6-10.3) mg/dL Total Bilirubin (0.2-1.0) mg/dL AST (13-39) U/L ALT (7-52) U/L Alkaline Phosphatase (34-104) U/L Troponin I (<0.04) ng/mL C-Reactive Protein (< 5.00) mg/L B-Natriuretic Peptide ( - 100) pg/mL Total Protein (6.4-8.9) g/dL Albumin (3.2-5.2) g/dL Globulin (2-4) g/dL Albumin/Globulin Ratio (1-3) Urine Color Naheed Urine Appearance Cloudy Urine pH 5.0 (5-9) Ur Specific [place] 1.017 (1.010-1.030) Urine Protein 2+(100 mg/dl) A (Negative) Urine Ketones Trace A (Negative) Urine Blood 1+ A (Negative) Urine Nitrate Negative (Negative) Urine Bilirubin Negative (Negative) Urine Urobilinogen Negative (Negative) Ur Leukocyte Esterase Negative (Negative) Urine WBC (Auto) 2+(11-20/hpf) A (Absent) Urine RBC (Auto) 2+(6-10/hpf) A (Absent) Ur Squamous Epith Cells Present A (Absent) Urine Bacteria Absent (Absent) Hyaline Casts Present A (Absent) Urine Glucose 2+(150 mg/dl) A (Negative) Result Diagrams: 05/28/17 21:40 05/28/17 23:50 Lab Statement: Any lab studies that have been ordered have been reviewed, and results considered in the medical decision making process. - Radiology CXR Radiology Interpretation Completed By: Radiologist - CARDIOMEGALY WITH INTERSTITIAL EDEMA CONSISTENT WITH CHF. ET TUBE AND NASOGASTRIC TUBE APPEARS TO BE IN PLACE. ED physician has reviewed this radiology report. - EKG 2114 Cardiac Rate: Tachycardia - 113 bpm EKG Rhythm: Sinus Tachycardia ST Segment: Non-Specific EKG Interpretation: normal axis, poor R wave progression Re-Evaluation - Re-Evaluation First Eval Re-Evaluation Time: 21:26 Comment: She is a little bit dyssynchronous with the ventilator, so we increased her sedation and changed her mode of ventilation. Second Eval Re-Evaluation Time: 21:49 Comment: Her pressure decreased, so we decreased her PEEP, decreased sedation and moved to paralyze her. Third Eval Change: Improved - sats 95-100, HR down and BP normalized Disposition - Course Course Of Treatment: Pt presents critically ill with resp failure. Hx of COPD with recent worsening. Tonight got worse. BIBA who initially tried CPAP but pt failured, was being bagged on arrival and poorly responsive. Lung sounds grossly diminished with exp wheeze. No def crackles heard and no peripheral edema. CXR from 05/24 neg. Today appears possibly wet vs pneumonia/aspiration. Intubated successfully and increased PEEP. Pt was dissynchronous with vent and required paralysis. Numbers much better with this and she improved her BPs significantly. Case discussed with hospitalist who is in ED evaluating. For ICU. Critical condition. - Differential Dx - Cardiopulmonary Differential Diagnoses - Cardiopulmonary: Acute Coronary, Acute Dyspnea, Aspiration, Cardiomyopathy, CHF, Lower Resp Infection, Medication Induced, Myocardial Infarction, Myocarditis, Pulmonary Edema, Pulmonary Embolism, Other - Respiratory failure, COPD, bilateral PNA - Diagnoses Provider Diagnoses: COPD (chronic obstructive pulmonary disease), Bilateral pneumonia, Respiratory failure - Physician Notifications Discussed Care Of Patient With: Andrew Smith Time Discussed With Above Provider: 22:42 Instructed by Provider To: Other - Consulted Dr. Smith who accepts the patient for admission. - Critical Care Time Critical Care Time: 30-74 min - CCT is EXCLUSIVE of separately billable procedures. Discharge - Sign-Out/Discharge Documenting (check all that apply): Discharge - Discharge Plan Condition: Critical Disposition: ADMITTED TO [facility] - Billing Disposition and Condition Condition: CRITICAL Disposition: [facility] [place] The documentation as recorded by the Frantz brandon Nikita accurately reflects the service I personally performed and the decisions made by Morena lazo Kirk, MD.
[2017-05-29 06:03] LABS: ABS Basophils 0 10^3/ul (0-0.2); ABS Eosinophils 0 10^3/ul (0-0.6); ABS Lymphocytes 0.6 10^3/ul (1.0-4.8); ABS Monocytes 0.3 10^3/ul (0-0.8); ABS Neutrophils 7.7 10^3/ul (1.5-7.7); ABS Nucleated RBC 0 10^3/ul; Eosinophil % 0.1 % (0-6); Hematocrit 33 % (35-47); Hemoglobin 11.3 g/dl (12.0-16.0); Lymphocyte % 6.8 % (25-47); Mean Corpuscular HGB Conc 34 g/dl (31-36); Mean Corpuscular Hemoglobin 30 pg (27-31); Mean Corpuscular Volume 88 fL (80-97); Nucleated Red Blood Cells % 0; Platelet Count 197 10^3/ul (150-450); Red Blood Count 3.75 10^6/ul (4.0-5.4); Red Cell Distribution Width 15 % (10.5-15); White Blood Count 8.6 10^3/ul (3.5-10.8)
[2017-05-29] MEDS ORDERED: Morphine VIAL* 4 MG/ML VIAL (1 ml vial) IV STA (06:13)
[2017-05-29 06:29] LABS: EGFR Non-African American 87.7 (>60)
[2017-05-29] MEDS ORDERED: Iodixanol* (CONTRAST) 320 MG/ML 100 ML SDV IV ONE (07:07)
--- NOTE | 2017-05-29 07:37 | RAD ---
HISTORY: Acute hypoxic, hypercapnic respiratory failure, elevated d-dimer COMPARISONS: None TECHNIQUE: Multiple contiguous axial CT scans of the chest were obtained without intravenous contrast. Coronal and sagittal multiplanar reformations are also submitted for review. FINDINGS: NECK AND THYROID: The lower neck and thyroid are unremarkable. CHEST WALL: There is no lower cervical, axillary, or supraclavicular lymphadenopathy by size criteria. HEART AND PERICARDIUM: The heart is unremarkable. AORTA AND PULMONARY VASCULATURE: There is no pulmonary arterial filling defect to suggest pulmonary embolism. Evaluation of the aorta is limited due to the phase of contrast administration. There is atherosclerosis of the thoracic aorta. MEDIASTINUM: There is no mediastinal lymphadenopathy by size criteria. WOLF: There is no hilar lymphadenopathy by size criteria. AIRWAY AND ESOPHAGUS: The airway is unremarkable, without endobronchial filling defect. The esophagus is grossly normal. LUNG PARENCHYMA: There is multifocal ground less opacification and consolidation of the lower lungs bilaterally there is more focal masslike consolidation of the right lower lobe on axial image 39 measuring approximate centimeters transversely. PLEURA: There are small bilateral pleural effusions. There is a small calcified pleural plaque along the right upper lobe on axial image 16. UPPER ABDOMEN: There is a small sliding hiatal hernia. BONES AND SOFT TISSUES: Degenerative changes are noted. OTHER: The endotracheal tube is noted with the tip in the trachea between the clavicles and the kadeem. A gastric tube is noted with the tip in the stomach. IMPRESSION: 1. NO PULMONARY ARTERIAL FILLING DEFECT TO SUGGEST PULMONARY EMBOLISM. 2. MULTIFOCAL BIBASILAR CONSOLIDATION, INCLUDING MORE FOCAL MASSLIKE CONSOLIDATION OF THE RIGHT LOWER LOBE. RECOMMEND FOLLOW-UP UNTIL RESOLUTION TO EXCLUDE UNDERLYING PULMONARY PARENCHYMAL PATHOLOGY. 3. SMALL BILATERAL PLEURAL EFFUSIONS.
[2017-05-29] MEDS: Pantoprazole IV* 40 MG IV SCH (07:51)
[2017-05-29] MEDS: Heparin VIAL(*) 5000 UNITS/ML VIAL (FIVE THOUSAND) SUBCUT SCH ×3 (07:52→21:15)
[2017-05-29] MEDS: Cefepime(*) 1 GM in PREMIX* 50 ML IVPB SCH ×2 (09:10→21:15)
--- NOTE | 2017-05-29 09:45 | ECHO ---
Patient: YUDI DOMINGUEZ [facility] Rec#: [id number] : 1935 Date: 05/29/2017 Age: 82y Height: 160.02 cm / 63.0 in Weight: 84.82 kg / 186.9 lbs Sex: F BSA: 1.88 Room#: ICU 6 Admit Date#: 05/28/2017 Type: Inpatient Referring: Andrew Smith MD Reading: Joe Dillon MD Wheel Roller: Anne Marie Donaldson,LESTERCS,RDMS CC: Tessy Ahumada MD Transthoracic Echocardiogram Indication: Sepsis, Respiratory failure BP: 104/69 HR: 92 Rhythm: NSR with PVCs Findings History: COPD, HTN, AOV stenosis Technical Comments: The study quality is fair. The study is technically limited due to patient being intubated and on a ventilator. Left Ventricle: The left ventricular chamber size is normal. Mild concentric left ventricular hypertrophy is observed. There are multiple regional wall motion abnormalities. The estimated ejection fraction is 25-30%. Abnormal left ventricular diastolic filling is observed, consistent with impaired relaxation. The mid anterior, mid anterolateral, mid inferior, mid inferoseptal, and apical anterior wall segments are hypokinetic (score 2). The apical septal, apical lateral, and apical inferior wall segments are akinetic (score 3). Overall wallmotion score index is 2.38 Left Atrium: The left atrium is mildly dilated. Right Ventricle: The right ventricular chamber size and systolic function are within normal limits. The right ventricle wall thickness is mildly increased. Right Atrium: The right atrial cavity size is normal. Aortic Valve: The aortic valve leaflets are mildly thickened. There is aortic annular calcification. There is no evidence of aortic regurgitation. There is mild aortic stenosis. The mean gradient of the aortic valve is 9 mmHg. The aortic valve area, by peak velocities, is calculated at 1.3 cm2. The highest aortic valve velocity was obtained with the standard probe from the A3C view. Mitral Valve: There is mitral annular calcification. The mitral valve leaflets are mildly thickened. There is a trace of mitral regurgitation. There is no evidence of mitral stenosis. Tricuspid Valve: The tricuspid valve leaflets are normal. There is mild to moderate tricuspid regurgitation. There is evidence of mild pulmonary hypertension. Pulmonic Valve: The pulmonic valve structure is not well visualized. There is no evidence of pulmonic valve thickening. There is no evidence of pulmonic regurgitation. Pericardium: There is no significant pericardial effusion. Aorta: The aortic root appears normal. There is no dilatation of the aortic arch. Pulmonary Artery: The main pulmonary artery appears normal. Venous: Unable to accurately comment on the size collapsibility of the IVC as the patient in known to be on mechanical ventilation. Conclusions There are multiple regional wall motion abnormalities. The estimated ejection fraction is 25-30%. The mid anterior, mid anterolateral, mid inferior, mid inferoseptal, and apical anterior wall segments are hypokinetic (score 2). The apical septal, apical lateral, and apical inferior wall segments are akinetic (score 3). The right ventricular chamber size and systolic function are within normal limits. There is mild aortic stenosis. The mean gradient of the aortic valve is 9 mmHg. There is a trace of mitral regurgitation. There is mild to moderate tricuspid regurgitation. There is evidence of mild pulmonary hypertension. There is no significant pericardial effusion. Comapred to study of 06/18/11, the LV function is much worse. Valve function is the same Measurements Name Value Normal Range RVIDd (AP) 2D 2.8 cm (0.9 - 2.6) RVDdMajor (2D) 3.3 cm (2.2 - 4.4) RAd ISD 4CH 4 cm (3.4 - 4.9) RA (A4C)W 4.4 cm (2.9 - 4.6) IVSd (2D) 1.1 cm (0.6 - 1) LVPWd (2D) 1.1 cm (0.6 - 1) LVIDd (2D) 3.6 cm (3.6 - 5.4) LVIDs (2D) 2.7 cm - LV FS (2D) 27 % (25 - 45) Aortic Annulus 2.1 cm (1.4 - 2.6) Ao root diameter (2D) 3 cm (2.1 - 3.5) Ascending Ao 2.7 cm (2.1 - 3.4) Aortic arch 2.9 cm (1.8 - 3.4) LA dimension (AP) 2D 3.7 cm (2.3 - 3.8) LAd ISD 4CH 4.9 cm (2.9 - 5.3) LA ISD 4CH W 4.1 cm (2.5 - 4.5) Name Value Normal Range LA ESV SP 4CH (A/L) 53.82 ml - LA ESV SP 2CH (A/L) 90.8 ml - LA ESV BP (A/L) 73.12 ml - LA ESV BP (A/L) index 39 ml/m2 - LA ESV SP 4CH (MOD) 49.87 ml - LA ESV SP 2CH (MOD) 84.91 ml - Name Value Normal Range MV E-wave Vmax 1 m/sec - MV deceleration time 111 msec - MV A-wave Vmax 1.3 m/sec - MV E:A ratio 0.8 ratio - LV septal e' Vmax 0.04 m/sec - LV lateral e' Vmax 0.04 m/sec - LV E:e' septal ratio 25 ratio - LV E:e' lateral ratio 25 ratio - Name Value Normal Range AV Vmax 2.1 m/sec - AV VTI 40 cm - AV peak gradient 18 mmHg - AV mean gradient 9 mmHg - LVOT diameter 2 cm - LVOT Vmax 0.9 m/sec - LVOT VTI 17.5 cm - LVOT peak gradient 3.2 mmHg - LVOT mean gradient 1.6 mmHg - MELISSA (continuity Vmax) 1.3 cm2 - MELISSA (continuity VTI) 1.4 cm2 - Name Value Normal Range MV Vmax 1.4 m/sec - MV VTI 25.5 cm - MV peak gradient 8 mmHg - MV mean gradient 3.4 mmHg - MV PHT 68 msec - MVA (PHT) 3.2 cm2 - MVA (continuity VTI) 2.1 cm2 - Name Value Normal Range TR Vmax 2.8 m/sec - TR peak gradient 31 mmHg - RAP 8 mmHg - RVSP 39 mmHg - IVC diameter 2.3 cm - Name Value Normal Range PV Vmax 0.9 m/sec - PV peak gradient 3.4 mmHg - Wallmotion BAS Not Seen BA Not Seen BAL Not Seen JOSE Not Seen BI Not Seen BIS Not Seen MAS Not Seen MA Hypokinetic MAL Hypokinetic MIL Not Seen MN Hypokinetic MIS Hypokinetic Akinetic AA Hypokinetic AL Akinetic AI Akinetic APEX Akinetic
[2017-05-29] MEDS: Albuterol 2.5 MG/3 ML NEB.SOL* (0.083%) INH PRN (09:56)
[2017-05-29] MEDS ORDERED: Albuterol 2.5 MG/3 ML NEB.SOL* (0.083%) INH ONE (09:58)
[2017-05-29] MEDS ORDERED: Furosemide IV* 10 MG/ML VIAL (40 MG) IV ONE ×2 (10:45→17:07)
[2017-05-29] MEDS: Albuterol 2.5 MG/3 ML NEB.SOL* (0.083%) INH SCH ×5 (10:57→23:39)
--- NOTE | 2017-05-29 13:29 | PN ---
Critical Care Services: Patient intubated last night for acute respiratory distress - Was extubated this AM and subsequently developed increased wheezing and SOB - was subsequently placed on BiPAP, which she remains on at this time. Wheezing has diminished significantly. There is no evidence of PE on CTA of chest. Respiratory secretions are scant. Vital Signs: Temp Pulse Resp BP SpO2 FiO2 98.4 F 108 29 120/76 94 40 Physical Exam: Gen:Somnolent but easily arousable Lungs: End-expiratory wheezing in both lungs Cardiac: Reg rhythm Extremities:No cyanosis or edema Fluid Balance (Past 24 Hours): 05/29/17 06:59 Intake Total 1852 Output Total 650 Balance +1202 Weight 188 lb Intake: IV Fluids 1778 NS (0.9%) 1778 Medicated IV 74 CC - Propofol/Diprivan 74 Output: NG Tube Drainage Amount 100 Waite 550 Labs: 05/28/17 05/28/17 05/28/17 23:34 23:50 23:53 ABG pH 7.20 L ABG pCO2 63 H ABG pO2 346 H ABG HCO3 21.3 ABG O2 Saturation 98.9 H ABG Base Excess -4.6 L O2 Delivery Device vent Vent Mode PCV FiO2 100 PEEP 10 BUN 17 Creatinine 0.93 Troponin I 0.26 H* Influenza A (Rapid) Negative Influenza B (Rapid) Negative 05/29/17 05/29/17 05/29/17 03:15 05:50 05:50 WBC 8.6 Hgb 11.3 L Hct 33 L Plt Count 197 Sodium 129 Potassium 3.6 Chloride 100 L Carbon Dioxide 23 Anion Gap 6 BUN 15 Creatinine 0.65 Glucose 167 H Calcium 7.6 L Troponin I 0.47 H* 0.67 H* Studies: CTA of thorax: No evidence of PE. there are small bilateral pleural effusions and ?? bibasilar infiltrates. There is also a confluence of opacities at the right base that may need further investigation (if patient survives this episode ). Nutrition: None Impression: Exacerbation of COPD - No evidence for active infection at the present time. The elevated troponins appear to be stress-related (i.e., no associated ECG changes). Plan: Continue BIPAP as needed. Hopefully, reintubation will not be necessary. Will continue empiric antibiotic coverage pending results of blood/sputum cultures. ( Per request of patient, she is a full code, and will be reintubated if necessary.) Will also continue to monitor troponins (until they begin to decline). I have spoken with patient and her family about the current condition and prognosis. Critical Care Time: 40 minutes (not including time spent with patient's family).
[2017-05-29] MEDS ORDERED: NS 0.9% 1000 ML* 1,000 ML IV SCH (17:07)
[2017-05-29] MEDS: Mometasone/Formoter 200/5 MDI INH SCH (19:29)
[2017-05-29] MEDS ORDERED: Levofloxacin 750 MG IVPREMIX(* 750 MG/150 ML BAG IVPB SCH (21:00)
[2017-05-30] MEDS: Morphine VIAL* 4 MG/ML VIAL (1 ml vial) IV PRN ×2 (04:16→19:38)
[2017-05-30] MEDS: Albuterol 2.5 MG/3 ML NEB.SOL* (0.083%) INH PRN (04:32)
[2017-05-30] MEDS ORDERED: Morphine VIAL* 4 MG/ML VIAL (1 ml vial) IV ONE ×2 (04:32→04:35)
[2017-05-30] MEDS: Acetaminophen TAB* 325 MG PO PRN (04:59)
[2017-05-30] MEDS ORDERED: Acetaminophen SUPP* 650 MG SUPP PR PRN (05:08)
[2017-05-30] MEDS ORDERED: Furosemide IV* 10 MG/ML 2 ML VIAL (20 MG) IV ONE (05:15)
[2017-05-30] MEDS ORDERED: Dexmedetomidine 4 MCG/ML 100 ML DRIP IVPB SCH ×2 (05:15)
[2017-05-30] MEDS ORDERED: Furosemide IV* 10 MG/ML 2 ML VIAL (20 MG) ONE (05:18)
[2017-05-30] MEDS: Albuterol 2.5 MG/3 ML NEB.SOL* (0.083%) INH SCH ×4 (05:20→23:31)
[2017-05-30] MEDS ORDERED: Succinylcholine* 20 MG/ML 10 ML VIAL ONE (05:52)
[2017-05-30] MEDS ORDERED: Etomidate* 2 MG/ML 20 ML VIAL (40 MG) ONE (05:57)
[2017-05-30] MEDS: Propofol* 100 ML IV SCH ×4 (06:00→20:49)
--- NOTE | 2017-05-30 06:16 | PN ---
Progress Note - Progress Note Date of Service: 05/30/17 Note: Called by nursing re: tachycardia, agitation. Upon arrival, Mrs José has her eyes open, but does not look to voice or attempt to answer questions. She is pulling at her BiPap & lines. She was given 2 followed by 4mg morphine w/o much improvement. Lungs are tight w/ prominent insp/exp wheeze & poor aeration. CV: TRR. Abdomen: SNTND. Extremities: W&D. Labs were drawn w/ ABG revealing pH of 7.15, pCO2 96. Rapid sequence intubation was performed. Please see separate intubation note. Critical care time 30 minutes
--- NOTE | 2017-05-30 06:21 | PN ---
Progress Note - Progress Note Date of Service: 05/30/17 Note: INTUBATION PROCEDURE NOTE INDICATION: Acute hypercapneic respiratory failure PROCEDURE REGULATOR ASSEMBLER: Lashell Smith MD CONSENT: The procedure was performed emergently and the permission was implied because of the emergent nature. PROCUDURE SUMMARY: My hands were washed immediately prior to the procedure. [place] precautions were practiced. The patient was on a property assessment monitor including continuous pulse oximetry. Integrity of endotracheal tube balloon was demonstrated. Rapid sequence intubation was conducted. The patient received 20mg etomidate & 100mg succinyl choline for adequate sedation & paralysis. Using a Glidescope and size 8 endotracheal tube with stylet, the patient was intubated on the first attempt. The stylet was removed and cuff balloon was inflated. Appropriate endotracheal tube position was confirmed by direct visualization of vocal cord passage, fogging of the tube, CO2 colometric indicator and symmetric breath sounds. The tube was secured at 21cm at the lips. OG was then placed. Chest x-ray confirmed appropriate placement of both.
[2017-05-30] MEDS: Heparin VIAL(*) 5000 UNITS/ML VIAL (FIVE THOUSAND) SUBCUT SCH ×3 (07:15→20:48)
--- NOTE | 2017-05-30 08:11 | RAD ---
INDICATION: Pneumonia. COMPARISON: Comparison is made with a prior chest x-ray study from May 28, 2017. TECHNIQUE: A portable view of the chest was obtained. FINDINGS: The heart appears within normal limits in size. There is diffuse prominence of the interstitial markings which appear unchanged. There is a more focal patchy infiltrate at the right lung base suspicious for pneumonia. The lungs are hyperinflated. No pleural effusion is seen. IMPRESSION: RIGHT BASILAR INFILTRATE WITH POSSIBLE SUPERIMPOSED PULMONARY EDEMA, UNCHANGED.
--- NOTE | 2017-05-30 08:11 | RAD ---
INDICATION: Status post intubation COMPARISON: Chest x-ray dated May 30, 2017 TECHNIQUE: Single AP portable view of the chest was obtained. FINDINGS: Image quality is compromised due to the relative inferiority of a portable chest x-ray. The endotracheal tube is positioned 5.8 cm above the kadeem and below the level of the clavicles. A gastric tube is seen overlying the mediastinum beyond the lower margin of the radiograph. The heart and mediastinum exhibit normal size and contour. Again seen is coarse atherosclerotic calcification overlying the arch of the aorta. There are patchy densities obscuring the lower lungs. The pulmonary vasculature appears engorged and indistinct. The left costophrenic angle is cut off from the [id number]. Visualized bones are normal for the patient's age. IMPRESSION: Interval placement of endotracheal tube and gastric tube and appropriate position.
[2017-05-30] MEDS: Pantoprazole IV* 40 MG IV SCH (08:31)
[2017-05-30] MEDS: Cefepime(*) 1 GM in PREMIX* 50 ML IVPB SCH ×2 (08:33→20:48)
[2017-05-30] MEDS: Tiotropium CAP.INH* CAP.INH/18 MCG (USE ORDER SET !) INH SCH (08:41)
[2017-05-30] MEDS: Mometasone/Formoter 200/5 MDI INH SCH ×2 (08:41→19:30)
[2017-05-30] MEDS ORDERED: Spiriva Inhaler DEVICE* 1 EACH DEVICE SCH (09:00)
[2017-05-30] MEDS ORDERED: NS 0.9% 500 ML* 500 ML IV ONE ×2 (10:00→12:00)
[2017-05-30] MEDS ORDERED: NS 0.9% 1000 ML* 1,000 ML IV SCH ×2 (10:45→12:15)
[2017-05-30] MEDS: Chlorhexidine MOUTHWASH 0.12%* 15 ML UDC TOPICAL SCH ×4 (11:07→20:48)
--- NOTE | 2017-05-30 12:48 | CONS ---
CC: Dr. Joseph Marcial; Dr. Tessy Ahumada* CARDIOLOGY CONSULTATION: DATE OF CONSULT: 05/30/17 INDICATION FOR CONSULT: Cardiomyopathy, respiratory failure. HISTORY OF PRESENT ILLNESS: The patient is an 82-year-old female with a history of hypertension, COPD, hypothyroidism, who was brought to the emergency room because of shortness of breath. The patient's son called the ambulance because of her increasing shortness of breath. En route to the hospital, she was needed to be intubated because of respiratory failure. The patient's family member says that she had been increasingly short of breath and increasing congestion over the last week or so. The patient was treated for COPD exacerbation and pneumonia and was extubated yesterday morning. Yesterday , the patient had an echocardiogram, which showed severe LV dysfunction, ejection fraction of 25% with akinesis of the apex and anterior and lateral apical mcclelland. She had severe hypokinesis of the lateral mcclelland and septal mcclelland. The patient's troponin levels are only minimally elevated at 0.8. The patient continued to struggle with her respiratory status yesterday and was reintubated last night or early this morning because of respiratory failure. Currently, the patient is intubated and comfortable. She has 4 children at her bedside. PAST MEDICAL HISTORY: Hypertension, hyperlipidemia, COPD, hypothyroidism, low- grade bladder cancer. PAST SURGICAL HISTORY: Cecal volvulus back in 2011. Other surgical history is appendectomy, hiatal hernia repair. OUTPATIENT MEDICATIONS: 1. Vitamin B12. 2. Enalapril 20 mg b.i.d. 3. Felodipine 5 mg a day. 4. Hydrochlorothiazide 25 mg a day. 5. Pravastatin 20 mg a day. 6. Fish oil tablets. ALLERGIES: To ASPIRIN, she gets itchy and a rash. FAMILY HISTORY: She has a twin brother who has had 2 open heart surgeries for coronary bypass. SOCIAL HISTORY: She lives on her own. She cares for her own house. She is a previous smoker. She quit 30 years ago. No alcohol. She does not get any regular exercise. She lives with her son. PHYSICAL EXAM: Height is 5 feet 3 inches, weight is 186 pounds. Temperature 99.9, heart rate is 85, respiratory rate is 16, she is intubated, oxygen saturation 98%, blood pressure 100/60. Sclerae anicteric. Oropharynx: She is intubated. Carotids are difficult to assess due to ventilatory breath sounds. Cardiac Exam: S1, S2 without any obvious murmurs, rubs, or gallops. Lungs have vented breath sounds throughout. Abdomen is soft, nontender, nondistended, with normoactive bowel sounds. Extremities show no edema. She has 2+ pulses in her dorsalis pedis, popliteal and femoral. The patient is sedated. LABORATORY DATA: White count 8.6, hemoglobin and hematocrit are stable, platelet count 197. Chemistries: Potassium 3.6, BUN 15, creatinine 0.6. Peak troponin 1.14. IMPRESSION: An 82-year-old female with respiratory failure and intubated, who is found to have severe left ventricular dysfunction. The patient has only minimal troponin levels. The patient was reintubated early this morning because of repeat respiratory failure. The question is whether her severe left ventricular dysfunction is limiting her weaning ability. The patient has no documented coronary artery disease, but obviously severe left ventricular dysfunction and severely abnormal EKG compared to her admission EKG. I had a long discussion with the family regarding their wishes. The patient would want everything done. At this point, the patient's cardiac status is potentially am impediment to weaning. The question is whether she has severe multivessel coronary artery disease or whether she has normal coronaries and currently has a takotsubo presentation. RECOMMENDATIONS: The patient will undergo cardiac catheterization. The risks and benefits were described in great detail to the family and they have agreed to proceed. Further recommendations pending results of her cardiac catheterization. [id number]/[facility] #: [id number] MTDD
[2017-05-30] MEDS ORDERED: Lidocaine 1% INJ* 10 MG/ML 30 ML SDV ONE (13:37)
[2017-05-30] MEDS ORDERED: Iohexol 350 (CONTRAST) 200 ML MDV IV ONE (13:37)
[2017-05-30] MEDS ORDERED: Heparin 2 UNITS/ML IVPREMIX* 2,000 ML IV ONE (13:37)
[2017-05-30] MEDS ORDERED: fentaNYL* 50 MCG/ML 2 ML VIAL (100 MCG VIAL) ONE (14:25)
[2017-05-30] MEDS ORDERED: Midazolam* 1 MG/ML 10 ML VIAL (10 MG) ONE (14:25)
[2017-05-30] MEDS ORDERED: Artificial Tears* 15 ML BTL BOTH EYES PRN (15:46)
--- NOTE | 2017-05-30 16:02 | PN ---
Date of Service: 05/30/17 Critical Care Services: Patient required reintubation early this AM. Because ECG showed T wave inversions across precordium, and tropinin levels remained elevated, cardiac catheterization was performed today, which revealed triple vessel disease but no specific lesions that could be opened with angioplasty. Patient is now back in ICU, on ventilator. Appears comfortable Vital Signs: Temp Pulse Resp BP SpO2 FiO2 100.2 F 91 18 111/61 97 40 Physical Exam: Gen: Somnolent but arousable. HEENT: Intubated Lungs: Occasional wheezes. No crackles. Cardiac: Reg rhythm Abdomen:Not distended. Extremities:No cyanosis or edema. Fluid Balance (Past 24 Hours): 05/30/17 06:59 Intake Total 1653 Output Total 3625 Balance -1972 Weight 186 lb Intake: IV Fluids 1148 NS (0.9%) 1148 IVPB 114 Cefepime 114 Medicated IV 31 CC - Propofol/Diprivan 31 Oral 360 Output: NG Tube Drainage Amount Waite 3625 Labs: 05/29/17 05/29/17 05/30/17 15:49 20:05 02:15 Troponin I 1.14 H* 0.65 H* 0.97 H* 05/30/17 05/30/17 05:10 05:30 ABG pH 7.15 L* ABG pCO2 96 ABG pO2 173 H ABG HCO3 26.0 ABG O2 Saturation 98.7 H ABG Base Excess 1.4 Respiration Rate 14 O2 Delivery Device bipap Ventilator Type Not Reportable Vent Mode Not Reportable FiO2 100 EPAP 5 IPAP 12 Lactic Acid 2.2 H* Troponin I NOTE: ABGs are prior to intubation. Studies: Cardiac Catheterization. Nutrition: None Impression: Ischemic cardiomyopathy - is likely the source of the respiratory difficulties in this case. Plan: Will keep on ventilator overnight and begin wean attempts tomorrow. When stable , will begin beta mahamed and YONATAN inhibitor Rx. If unable to wean tomorrow, will start enteral tube feedings. Critical Care Time: 35 minutes
--- NOTE | 2017-05-30 23:37 | CATH ---
CC: Joseph Marcial MD; [facility]* CARDIAC CATHETERIZATION REPORT: DATE OF OPERATION: 05/30/17 DATE OF : 39 OPERATIVE PROCEDURE: Cardiac catheterization including coronary angiography. INDICATION FOR PROCEDURE: Congestive heart failure, cardiomyopathy, respiratory failure. The patient is an 82-year-old female who is admitted to the hospital with COPD exacerbation and pneumonia. She was intubated for respiratory failure. Yesterday, she was extubated but failed extubation, had to be reintubated early this morning. An echocardiogram showed severe LV dysfunction with ejection fraction of 25% with apical akinesis. Cardiac catheterization was recommended to evaluate coronary artery disease in light of her severe cardiomyopathy. DESCRIPTION OF PROCEDURE: The patient was brought to the cardiac catheterization lab in a fasting state. Informed consent had been obtained prior to the procedure from her family. All labs were reviewed. The patient was placed supine on the catheterization table. Both femoral areas were cleaned and draped in usual fashion. 1% lidocaine was used for local anesthesia. The right femoral artery was entered by a modified Seldinger technique and a 6-Danish sheath was introduced in its place. 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 I was able to pass a catheter and wire through the aneurysm and up in to the aorta. The patient underwent coronary angiography using a 6-Danish JL4 catheter and a 6- Danish JR4 catheter. At the end of the procedure, an angiogram of the femoral artery demonstrated normal position of the catheter and a Mynx closure device was deployed. The patient tolerated the procedure well. There were no complications. A total of 70 cc of Omnipaque dye was used. A total of 4.1 minutes of fluoro time was used. FINDINGS: 1. Left main: The left main actually did not exist and there was a dual ostial left main, the LAD, and circumflex. 2. Left anterior descending artery: The LAD had mild calcification at the ostium of the LAD, the mid LAD and a long 50% stenosis. The remainder of the vessel was without disease. The first diagonal vessel was without disease. 3. Left circumflex artery: The circumflex artery was normal in size. It gave off 2 obtuse marginal branches. There was no evidence of stenosis. 4. Right coronary artery: The RCA was a large dominant vessel. It gave off the PDA. There was a proximal 50% stenosis to the right coronary artery. The mid vessel had 30% stenosis. The remainder of the vessel including the PDA and posterolateral branch were without disease. IMPRESSION: 1. Moderate disease of the LAD and right coronary artery. 2. Mynx closure device of the right femoral artery. RECOMMENDATION: The patient will continue on maximum medical therapy for her respiratory status. The patient will be started on beta-blockers and YONATAN inhibitor as blood pressure tolerates. [id number]/[facility] #: [id number] [facility] HOSPITALJuan Carlos
[2017-05-31] MEDS: Chlorhexidine MOUTHWASH 0.12%* 15 ML UDC TOPICAL SCH ×6 (03:00→22:12)
[2017-05-31] MEDS: Albuterol 2.5 MG/3 ML NEB.SOL* (0.083%) INH PRN (03:16)
[2017-05-31] MEDS: Propofol* 100 ML IV SCH ×5 (04:12→23:10)
[2017-05-31 05:15] LABS: ABS Basophils 0.1 10^3/ul (0-0.2); ABS Eosinophils 0.1 10^3/ul (0-0.6); ABS Monocytes 0.6 10^3/ul (0-0.8); ABS Neutrophils 6.4 10^3/ul (1.5-7.7); ABS Nucleated RBC 0 10^3/ul; Eosinophil % 1.5 % (0-6); Hematocrit 31 % (35-47); Hemoglobin 10.6 g/dl (12.0-16.0); Lymphocyte % 12.3 % (25-47); Mean Corpuscular HGB Conc 34 g/dl (31-36); Mean Corpuscular Hemoglobin 30 pg (27-31); Mean Corpuscular Volume 88 fL (80-97); Mean Platelet Volume 8.1 um3 (7.4-10.4); Nucleated Red Blood Cells % 0.1; Platelet Count 172 10^3/ul (150-450); Red Blood Count 3.54 10^6/ul (4.0-5.4); Red Cell Distribution Width 15 % (10.5-15); White Blood Count 8.2 10^3/ul (3.5-10.8)
[2017-05-31] MEDS ORDERED: Potassium Chloride IV* 40 MEQ in NS 0.9% 250 ML* 250 ML IVPB ONE (06:00)
[2017-05-31] MEDS: Heparin VIAL(*) 5000 UNITS/ML VIAL (FIVE THOUSAND) SUBCUT SCH ×3 (06:24→22:12)
[2017-05-31] MEDS: Mometasone/Formoter 200/5 MDI INH SCH ×2 (07:21→22:17)
[2017-05-31] MEDS: Tiotropium CAP.INH* CAP.INH/18 MCG (USE ORDER SET !) INH SCH (07:22)
[2017-05-31] MEDS: Albuterol 2.5 MG/3 ML NEB.SOL* (0.083%) INH SCH ×3 (07:28→19:54)
--- NOTE | 2017-05-31 07:51 | RAD ---
INDICATION: Pneumonia COMPARISON: Most recent chest x-ray is dated May 30, 2017 TECHNIQUE: Single AP portable view of the chest was obtained. FINDINGS: Image quality is compromised due to the relative inferiority of a portable chest x-ray. The endotracheal tube and gastric tube remain appropriately positioned. Again seen is mild cardiomegaly and coarse calcification overlying the arch of the aorta. There is patchy density overlying the bilateral lower lungs with worsening density at the left lung base obscuring the left hemidiaphragm and causing left costophrenic angle blunting. Visualized bones are normal for the patient's age. IMPRESSION: Relative to the previous days chest x-ray there is worsening density obscuring the left lung base and left hemidiaphragm which could be worsening pleural effusion and/or consolidation.
[2017-05-31] MEDS: Morphine VIAL* 4 MG/ML VIAL (1 ml vial) IV PRN ×2 (08:16→16:07)
[2017-05-31] MEDS: Pantoprazole IV* 40 MG IV SCH (09:02)
[2017-05-31] MEDS: Cefepime(*) 1 GM in PREMIX* 50 ML IVPB SCH (09:03)
[2017-05-31] MEDS: LORazepam INJ* 2 MG/ML 1 ML VIAL IV PUSH PRN ×2 (09:46→15:33)
[2017-05-31] MEDS ORDERED: Furosemide IV* 10 MG/ML VIAL (40 MG) IV ONE (10:56)
--- NOTE | 2017-05-31 18:44 | PN ---
Date of Service: 05/31/17 Critical Care Services: Continues on ventilator - less agitated today and tolerated wean trials on PSV Vital Signs: Temp Pulse Resp BP SpO2 FiO2 99.7 F 96 23 106/70 95 40 Physical Exam: Gen:Somnolent but arousable and appears oriented when aroused. Lungs: No wheezes or crackles Cardiac: Reg rhythm Extremities:No cyanosis or edema Fluid Balance (Past 24 Hours): 05/31/17 06:59 Intake Total 2680 Output Total 0 Balance 640 Weight 191 lb Intake: IV Fluids 2140 Cefepime 1236 NS (0.9%) 904 IVPB 48 Cefepime 48 NS (0.9%) Medicated IV 492 CC - Propofol/Diprivan 492 Oral 0 Output: NG Tube Drainage Amount Waite 2039 Labs: 05/31/17 05/31/17 05:06 05:06 WBC 8.2 Hgb 10.6 L Hct 31 L Plt Count 172 Sodium 136 L Potassium 2.5 Chloride 100 L Carbon Dioxide 27 Anion Gap 9 BUN 15 Creatinine 0.58 Glucose 116 Calcium 8.7 Total Bilirubin 0.40 AST 27 ALT 38 Alkaline Phosphatase 76 Total Protein 5.6 Albumin 2.9 Globulin 2.7 Albumin/Globulin Ratio 1.1 Triglycerides 217 Cholesterol 153 LDL Cholesterol 67 HDL Cholesterol 42.5 NOTE: Patient given K replacement Studies: All cultures and antigens negative Nutrition: None Impression: Continues to be vent dependent, although has improved. No evidence of a treatable infection. Plan: D/c antibiotics and continue wean attempts. Will check serum K after replacement. Also will start enteral tube feedings if not extubated tomorrow. Critical Care Time: 45 minutes (including evaluation of weaning).
--- NOTE | 2017-05-31 20:03 | PN ---
Subjective Date of Service: 05/31/17 - cc: sob Interval History: At the time I saw patient she was sedated and could not provide a history. The nurse informed me she failed weaning off ventilator. Taxing day with vistors/family. Medications Active Medications: Acetaminophen (Tylenol Tab*) 650 mg PO Q6H PRN PRN Reason: FEVER/PAIN Acetaminophen (Tylenol Supp*) 650 mg IN Q6H PRN PRN Reason: FEVER/PAIN Last Admin: 05/30/17 05:44 Dose: 650 mg Albuterol (Ventolin 2.5 Mg/3 Ml Neb.Roxane*) 2.5 mg INH Q2H PRN PRN Reason: SOB/WHEEZING Last Admin: 05/31/17 03:16 Dose: 2.5 mg Albuterol (Ventolin 2.5 Mg/3 Ml Neb.Roxane*) 2.5 mg INH [id number] AWAKE KEL Last Admin: 05/31/17 19:54 Dose: 2.5 mg Chlorhexidine Gluconate (Peridex Mouth Wash 0.12%*) 15 ml TOPICAL Q4HR KEL Last Admin: 05/31/17 17:45 Dose: 15 ml Device (Tiotropium Inhaler Device*) 1 each .SEE ORDER .USE w/ SPIRIVA CAPS KEL Heparin Sodium (Porcine) (Heparin Vial(*)) 5,000 units SUBCUT Q8HR KEL Last Admin: 05/31/17 15:22 Dose: 5,000 units Propofol (Diprivan*) 100 mls @ 12.75 mls/hr IV .(Initial Rate) KEL; 25 MCG/KG/ MIN PRN Reason: Protocol Last Admin: 05/31/17 17:51 Dose: 12.75 mls/hr Lorazepam (Ativan Inj*) 1 mg IV PUSH Q4H PRN PRN Reason: ANXIETY Last Admin: 05/31/17 15:33 Dose: 1 mg Mometasone Furoate/Formoterol Fumar (Dulera 200/5 Mdi*) 2 puff INH BID KEL Last Admin: 05/31/17 07:21 Dose: Not Given Morphine Sulfate (Morphine Vial*) 4 mg IV Q2H PRN PRN Reason: PAIN/DISCOMFORT Last Admin: 05/31/17 16:07 Dose: 4 mg Ondansetron HCl (Zofran Inj*) 4 mg IV Q6H PRN PRN Reason: NAUSEA Pantoprazole Sodium (Protonix Iv*) 40 mg IV DAILY [facility] Last Admin: 05/31/17 09:02 Dose: 40 mg Polyvinyl Alcohol (Polyvinyl Alcohol 1.4% Opth*) 1 drop BOTH EYES Q2H PRN PRN Reason: DRY EYE Last Admin: 05/31/17 09:02 Dose: 1 drop Tiotropium [place] (Spiriva Cap.Inh*) 1 cap INH DAILY [facility] Last Admin: 05/31/17 07:22 Dose: Not Given Objective Vital Signs: Temp Pulse Resp BP Pulse Ox 97.8 F 95 21 140/78 97 05/31/17 19:46 05/31/17 18:30 05/31/17 18:00 05/31/17 18:30 05/31/17 18:30 Intake & Output 05/31/17 05/31/17 05/31/17 04:59 12:59 20:59 Intake Total 684 611 377 Output Total 310 500 290 Balance 374 111 87 Weight 191 lb 12.835 oz Intake: IV Fluids 563 397 70 Cefepime 56 NS (0.9%) 507 397 70 IVPB 150 NS (0.9%) 150 Medicated IV 121 214 157 CC - Propofol/Diprivan 121 214 157 Output: Waite 310 500 290 Oxygen Devices in Use Now: Mechanical Ventilator Appearance: short overweight elederly female on ventilator, sedated, at 40 degrees, comfotable, no tachypnea. Eyes: PERRLA Ears/Nose/Mouth/Throat: Clear Oropharnyx, Mucous Membranes Moist Neck: Trachea Midline, No Thyroid Enlargement, Masses Respiratory: Symmetrical Chest Expansion and Respiratory Effort - few lateral and posterial crackles. Cardiovascular: RRR Abdominal: NL Sounds; No Tenderness; No Distention Extremities: No Edema Skin: No Rash or Ulcers - R groin cath site: nominal ecchymosis, no induration. Yeast infection, mild. Neurological: - - sedated. Laboratory Results: 05/31/17 05:06 05/31/17 05:06 INR (Anticoag Therapy) 0.89 (0.77-1.02) 05/28/17 21:40 APTT 34.7 seconds (26.0-36.3) 05/28/17 21:40 Total Bilirubin 0.40 mg/dL (0.2-1.0) 05/31/17 05:06 AST 27 U/L (13-39) 05/31/17 05:06 ALT 38 U/L (7-52) 05/31/17 05:06 Alkaline Phosphatase 76 U/L (34-104) 05/31/17 05:06 B-Natriuretic Peptide 45 pg/mL (-100) 05/28/17 21:40 Total Protein 5.6 g/dL (6.4-8.9) L 05/31/17 05:06 Albumin 2.9 g/dL (3.2-5.2) L 05/31/17 05:06 Globulin 2.7 g/dL (2-4) 05/31/17 05:06 Albumin/Globulin Ratio 1.1 (1-3) 05/31/17 05:06 Triglycerides 217 mg/dL 05/31/17 05:06 Cholesterol 153 mg/dL 05/31/17 05:06 LDL Cholesterol 67 mg/dL 05/31/17 05:06 HDL Cholesterol 42.5 mg/dL 05/31/17 05:06 05/28/17 05/29/17 05/29/17 23:50 03:15 05:50 Troponin I 0.26 H* 0.47 H* 0.67 H* 05/29/17 05/29/17 05/30/17 15:49 20:05 02:15 Troponin I 1.14 H* 0.65 H* 0.97 H* Arterial Blood Gas Results Patient Temperature Not Reportable 05/30/17 05:30 ABG pH 7.15 (7.35-7.45) L* 05/30/17 05:30 ABG pH (Temp Correct) Not Reportable 05/30/17 05:30 ABG pCO2 96 mmHg (35-45) H* 05/30/17 05:30 ABG pCO2 (Temp Corrct Not Reportable 05/30/17 05:30 ABG pO2 173 mmHg (80-100) H 05/30/17 05:30 ABG pO2 (Temp Correct Not Reportable 05/30/17 05:30 ABG HCO3 26.0 mmol/L (19-31) 05/30/17 05:30 ABG O2 Saturation 98.7 % (95-98) H 05/30/17 05:30 ABG Base Excess 1.4 (-2.0-2.0) 05/30/17 05:30 Respiration Rate 14 05/30/17 05:30 O2 Delivery Device bipap 05/30/17 05:30 Ventilator Type Not Reportable 05/30/17 05:30 Vent Mode Not Reportable 05/30/17 05:30 FiO2 100 05/30/17 05:30 Inspiratory Time Not Reportable 05/30/17 05:30 PEEP Not Reportable 05/30/17 05:30 Pressure Support Not Reportable 05/30/17 05:30 Pressure Control Not Reportable 05/30/17 05:30 EPAP 5 05/30/17 05:30 IPAP 12 05/30/17 05:30 BiPAP s/t 05/30/17 05:30 Diagnostic Imaging: Cardiac catheterization 05/30/17 ([facility]): 50% LAD lesions, 50% and 30% RCA lesions. ECHO: EF 25% CXR today ([facility]) c/w worsening CHF. EKG Data: Montitor: SR, PAC's, sinus arrhythmia. Assessment/Plan 82 yo woman who presented with SOB required intubation, was acidemic and hypercarbic at presentation. She has a hx of COPD and on this admission was found to have a depressed EF and cath yesterday showed moderate CAD. Cardiomyopathy is out of proportion to her CAD and her metabolic and respiratory abnormalities likely contribute. CAD and ACS: -On SQ heparin, option of full lovenox or heparin gtt for ischemia and DVT prophylaxis. -Lipids controlled based on labs. -Option of gentle trial of calcium mahamed such as amlodipine. I think betablocker contrainticated with COPD issues right now. Cardiomyopathy -Optimize oxygenation, ventilation, acidemia and electrolytes. -Await BMP ordered for tonight, but suspect she will need additional KCl to what she received earlier today. -Consider/recommend spironolactone instead of or with KCl for CM and lasix induced low K+. -ACEI could be started, consider low dose trial of captopril, ramapril or ARB. -Agree with lasix for now. Cath site: Healing nicely. Anemia noted, contributing to overall picture. I would repeat echo next week.
[2017-05-31 21:24] LABS: EGFR Non-African American 102.1 (>60)
[2017-06-01] MEDS: LORazepam INJ* 2 MG/ML 1 ML VIAL IV PUSH PRN ×2 (00:27→17:44)
[2017-06-01] MEDS ORDERED: Potassium Chloride IV* 40 MEQ in NS 0.9% 250 ML* 250 ML IVPB ONE ×2 (00:30→18:00)
[2017-06-01] MEDS: Albuterol 2.5 MG/3 ML NEB.SOL* (0.083%) INH SCH ×4 (02:34→18:28)
[2017-06-01] MEDS: Chlorhexidine MOUTHWASH 0.12%* 15 ML UDC TOPICAL SCH ×6 (03:32→21:49)
[2017-06-01] MEDS: Propofol* 100 ML IV SCH ×6 (03:32→23:55)
[2017-06-01] MEDS: KCL premix 10 MEQ/50 ML IVPREMIX x 4 RUNS IV SCH ×2 (03:33→03:34)
[2017-06-01 05:52] LABS: Hematocrit 33 % (35-47); Hemoglobin 11.2 g/dl (12.0-16.0); Mean Corpuscular HGB Conc 34 g/dl (31-36); Mean Corpuscular Hemoglobin 30 pg (27-31); Mean Corpuscular Volume 88 fL (80-97); Mean Platelet Volume 7.7 um3 (7.4-10.4); Platelet Count 198 10^3/ul (150-450); Red Blood Count 3.75 10^6/ul (4.0-5.4); Red Cell Distribution Width 16 % (10.5-15); White Blood Count 8.6 10^3/ul (3.5-10.8)
[2017-06-01] MEDS: Heparin VIAL(*) 5000 UNITS/ML VIAL (FIVE THOUSAND) SUBCUT SCH ×3 (05:54→21:49)
[2017-06-01 06:10] LABS: EGFR Non-African American 127.5 (>60)
[2017-06-01] MEDS: Tiotropium CAP.INH* CAP.INH/18 MCG (USE ORDER SET !) INH SCH (07:18)
[2017-06-01] MEDS: Mometasone/Formoter 200/5 MDI INH SCH ×2 (07:18→19:53)
--- NOTE | 2017-06-01 08:46 | RAD ---
INDICATION: Congestive heart failure. COMPARISON: Comparison is made with a prior study from May 31, 2017. TECHNIQUE: A portable view of the chest was obtained. FINDINGS: There are nasogastric and endotracheal tube present which appear unchanged. The heart appears mildly enlarged and unchanged. There is mild prominence of the interstitial markings and bibasilar infiltrates which appear unchanged. There is trace pleural effusions. IMPRESSION: TRACE PLEURAL EFFUSIONS AND BIBASILAR INFILTRATES, UNCHANGED.
[2017-06-01] MEDS: Pantoprazole IV* 40 MG IV SCH (09:05)
[2017-06-01] MEDS: Furosemide IV* 10 MG/ML VIAL (40 MG) IV SCH (09:26)
[2017-06-01] MEDS ORDERED: Potassium Chloride IV* 60 MEQ in NS 0.9% 500 ML* 500 ML IVPB ONE (09:30)
[2017-06-01] MEDS ORDERED: KCL 20 MEQ/100 ML IVPREMIX* 20 MEQ/100 ML BAG IV SCH ×2 (10:00→18:00)
[2017-06-01] MEDS: Acetaminophen TAB* 325 MG PO PRN (13:10)
[2017-06-01] MEDS: Lisinopril TAB* 5 MG PO SCH (13:10)
[2017-06-01] MEDS: Famotidine SUSP* 40 MG/5 ML ORAL.SYRIN SCH (13:40)
--- NOTE | 2017-06-01 17:00 | PN ---
Date of Service: 06/01/17 Critical Care Services: Did well on minimal vent support (5/5), but did not tolerate spontaneous breathing on a T-piece. Has been started on lisinopril for heart failure. Vital Signs: Temp Pulse Resp BP SpO2 FiO2 99.7 F 95 20 142/86 95 35 Physical Exam: Gen:Somnolent but arousable Lungs: scattered rhonchi Cardiac: Reg rhythm Extremities:No cyanosis or edema Fluid Balance (Past 24 Hours): 06/01/17 06/02/17 06:59 06:59 Intake Total 1060.6 555 Output Total 1096 1130 Balance -35.4 -575 Weight 184 lb Intake: IV Fluids 204.2 36 Cefepime NS (0.9%) 204.2 36 IVPB 150 Cefepime NS (0.9%) 150 Medicated IV 706.4 519 CC - Propofol/Diprivan 428.4 158 Potassium 278 361 Oral Output: [place] 1096 1130 Labs: 05/31/17 06/01/17 06/01/17 20:56 05:45 05:45 WBC 8.6 RBC 3.75 L Hgb 11.2 L Hct 33 L MCV 88 MCH 30 MCHC 34 RDW 16 H Plt Count 198 MPV 7.7 Sodium 140 140 Potassium 2.6 L* 2.9 L Chloride 99 L 102 Carbon Dioxide 30 30 Anion Gap 11 8 BUN 13 14 Creatinine 0.57 0.47 L Glucose 111 H 126 H Calcium 9.1 9.0 Magnesium 2.0 Studies: None today Nutrition: Tube feedings started today (promote) Impression: Is better today, but still not able to sustain spontaneous breathing. Has refractory hypokalemia (possibly due to magnesium depletion) Plan: 1. Continue with diuresis, in addition to the lisinopril for afterload reduction. Give magnesium first, then replace potassium. Patient's family at bedside and aware of the current situation. Critical Care Time: 40 minutes
[2017-06-01] MEDS ORDERED: Magnesium Sulfate IV* 3 GM in NS 0.9% 100 ML* 100 ML IVPB ONE (18:00)
[2017-06-02] MEDS: Morphine VIAL* 4 MG/ML VIAL (1 ml vial) IV PRN ×2 (00:02→14:18)
[2017-06-02] MEDS: Albuterol 2.5 MG/3 ML NEB.SOL* (0.083%) INH SCH ×3 (01:44→13:32)
[2017-06-02] MEDS: Chlorhexidine MOUTHWASH 0.12%* 15 ML UDC TOPICAL SCH ×5 (02:11→17:20)
[2017-06-02] MEDS: Propofol* 100 ML IV SCH ×2 (04:06→08:12)
[2017-06-02] MEDS: Heparin VIAL(*) 5000 UNITS/ML VIAL (FIVE THOUSAND) SUBCUT SCH ×2 (05:42→14:29)
[2017-06-02 06:04] LABS: EGFR Non-African American 106.3 (>60)
[2017-06-02] MEDS: Famotidine SUSP* 40 MG/5 ML ORAL.SYRIN SCH (07:57)
[2017-06-02] MEDS: Furosemide IV* 10 MG/ML VIAL (40 MG) IV SCH (07:57)
[2017-06-02] MEDS: Lisinopril TAB* 5 MG PO SCH (07:57)
[2017-06-02] MEDS ORDERED: Potassium Chloride LIQUID* 20 MEQ PACKET PO SCH (09:00)
[2017-06-02] MEDS ORDERED: Famotidine IV * 20 MG in NS 0.9% 100 ML* 100 ML IVPB SCH (09:00)
[2017-06-02] MEDS ORDERED: Famotidine IV* 10 MG/ML 2 ML (20 mg) IV SCH (09:00)
[2017-06-02] MEDS: Tiotropium CAP.INH* CAP.INH/18 MCG (USE ORDER SET !) INH SCH (09:39)
[2017-06-02] MEDS: Mometasone/Formoter 200/5 MDI INH SCH (09:39)
[2017-06-02] MEDS ORDERED: nitroGLYCERIN DRIP* 25,000 MCG/250 ML BTL IV SCH (14:30)
[2017-06-02] MEDS ORDERED: EPINEPHrine,Rac 2.25% NEB.SOL* 0.5 ML ONE (14:47)
[2017-06-02] MEDS ORDERED: methylPREDNISolone 125 MG* 2 ML VIAL IV ONE (14:47)
[2017-06-02] MEDS ORDERED: EPINEPHrine,Rac 2.25% NEB.SOL* 0.5 ML INH ONE (14:50)
[2017-06-02] MEDS ORDERED: Morphine INJ* 10 MG/ML 1 ML CARPUJECT ONE (14:54)
[2017-06-02] MEDS ORDERED: Morphine PCA ADULT* 5 MG/ML 30 ML ONE (15:02)
[2017-06-02] MEDS ORDERED: Morphine INJ* 10 MG/ML 1 ML CARPUJECT IV ONE ×2 (15:20→16:00)
[2017-06-02] MEDS ORDERED: LORazepam INJ* 2 MG/ML 1 ML VIAL ONE ×3 (16:03→16:33)
[2017-06-02] MEDS ORDERED: LORazepam INJ* 2 MG/ML 1 ML VIAL IV PUSH ONE ×2 (16:30→16:40)
[2017-06-02] MEDS ORDERED: Morphine PCA 5 MG/ML * Titrate per Protocol PCA SCH (17:00)
[2017-06-02] MEDS ORDERED: LORazepam VIAL (for drip)* 100 MG in D5W 50 ML BAG* 50 ML IVPB SCH (17:00)
--- NOTE | 2017-06-02 17:32 | PN ---
Progress Note - Progress Note Date of Service: 06/02/17 Note: Patient was weaned and extubated earlier today - she then stated that she did not want to be reintubated and did not want CPR, so DNR/DNI orders were executed. The patient subsequently developed inspiratory stridor, Rxed with racemic epinephrine and IV steroids. There was initial improvement but then respiratory status deteriorated, with diffuse wheezing and O2 desaturation. At this point, patient requested "just let me go" - was then started on "comfort measures care" with a morphine/lorazepam infusion. Family has been present at the bedside, and the patient appears comfortable at the present time (17:30 HRS) . Last SpO2 = 54%. Critical Care Time: 60 minutes (including time for weaning, extubation, and comfort measures care)
[2017-06-02 19:40] VITALS: BP 76/46
--- NOTE | 2017-06-02 21:46 | DS ---
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 He relates she has had a cough & congestion since February similar to another family member. Ashwin was reportedly talking on the phone and became more acutely SOB prompting the call for EMS. There was no complaint of chest pain, LE swelling/ pain, F/C, sweats, or N/V/D. Her son states that his sister is en route from [place] and may have more information on her treatment wishes. Hospital Course Patient was able to be extubated early in her admission, but developed hypercapnia on BiPap requiring re-intubation. After more gradual wean, she was re-extubated today, but unfortunately began to decompensate again and instructed Dr Marcial that she did not want to be extubated & was placed on comfort-only measures with which family agreed. She passed at 2041. Discharge Exam Absent peripheral pulses, absent cardiac sounds, no spontaneous respirations. Time for Discharge: <30minutes
== END 2017-06-02 20:42 | disposition expired | DRG 208 ==
LOC: ED 20:46 → ICU 23:25
PROVIDERS: ADMIT Hospitalist; ATTEND Hospitalist
PROC: 5A1935Z Respiratory Ventilation, Less than 24 Consecutive Hours (ICD-10-PCS; principal; 2017-05-28)
PROC: 0BH17EZ Insertion of Endotracheal Airway into Trachea, Via Natural or Artificial Opening (ICD-10-PCS; 2017-05-28)
PROC: 02HV33Z Insertion of Infusion Device into Superior Vena Cava, Percutaneous Approach (ICD-10-PCS; 2017-05-28)
PROC: 4A023N7 Measurement of Cardiac Sampling and Pressure, Left Heart, Percutaneous Approach (ICD-10-PCS; 2017-05-30)
PROC: B2111ZZ Fluoroscopy of Multiple Coronary Arteries using Low Osmolar Contrast (ICD-10-PCS; 2017-05-30)
PROC: 0BP1XDZ Removal of Intraluminal Device from Trachea, External Approach (ICD-10-PCS; 2017-05-30)
PROC: 0BH17EZ Insertion of Endotracheal Airway into Trachea, Via Natural or Artificial Opening (ICD-10-PCS; 2017-05-30)
PROC: 5A09357 Assistance with Respiratory Ventilation, Less than 24 Consecutive Hours, Continuous Positive Airway Pressure (ICD-10-PCS; 2017-05-30)
PROC: 5A09357 Assistance with Respiratory Ventilation, Less than 24 Consecutive Hours, Continuous Positive Airway Pressure (ICD-10-PCS; 2017-05-30)
PROC: 5A1945Z Respiratory Ventilation, 24-96 Consecutive Hours (ICD-10-PCS; 2017-05-30)
DX: J96.01 Acute respiratory failure with hypoxia (principal); I24.9 Acute ischemic heart disease, unspecified; J44.1 Chronic obstructive pulmonary disease with (acute) exacerbation; J96.02 Acute respiratory failure with hypercapnia; M06.9 Rheumatoid arthritis, unspecified; M19.90 Unspecified osteoarthritis, unspecified site; E03.9 Hypothyroidism, unspecified; E78.5 Hyperlipidemia, unspecified; R79.1 Abnormal coagulation profile; R79.89 Other specified abnormal findings of blood chemistry; R94.31 Abnormal electrocardiogram [ECG] [EKG]; I25.10 Atherosclerotic heart disease of native coronary artery without angina pectoris; I11.0 Hypertensive heart disease with heart failure; I50.9 Heart failure, unspecified; I72.3 Aneurysm of iliac artery; I27.20 Pulmonary hypertension, unspecified; Z51.5 Encounter for palliative care; E66.9 Obesity, unspecified; R74.8 Abnormal levels of other serum enzymes; N20.0 Calculus of kidney; I25.5 Ischemic cardiomyopathy; D64.9 Anemia, unspecified; E87.6 Hypokalemia; Z66 Do not resuscitate; I08.3 Combined rheumatic disorders of mitral, aortic and tricuspid valves; Z88.6 Allergy status to analgesic agent; Z91.048 Other nonmedicinal substance allergy status; Z98.42 Cataract extraction status, left eye; Z98.41 Cataract extraction status, right eye; Z92.21 Personal history of antineoplastic chemotherapy; Z85.51 Personal history of malignant neoplasm of bladder; Z87.891 Personal history of nicotine dependence; Z93.3 Colostomy status; Z90.79 Acquired absence of other genital organ(s); Z90.49 Acquired absence of other specified parts of digestive tract; Z79.01 Long term (current) use of anticoagulants; Z98.51 Tubal ligation status; Z68.32 Body mass index [BMI] 32.0-32.9, adult
CPT/HCPCS: 36415; 36600; 71045; 71275; 80048; 80053; 80061; 81003; 81015; 82565; 82803; 83605; 83735; 83880; 84484; 84520; 85025; 85027; 85379; 85610; 85730; 86140; 87040; 87070; 87077; 87086; 87205; 87502; 87641; 87899; 93005; 93306; 93454; 94002; 94003; 94640; 94660; 94760; 99156; 99157; 99285; A9270-GY; C1751; C1887; J0330; J0692; J1644; J1940; J2060; J2250; J2270; J2704; J2930; J3010; J3475; J3480; Q9967